=== PATIENT | male | born 1990 | race Caucasian/White ===

== ENCOUNTER 2023-03-20 10:05 | Emergency (ER) | payer OTHER, SELFPAY ==
[2023-03-20 10:14] VITALS: BP 153/86; PULSE 105; RESP 16; TEMP 36.5; O2SAT 99
--- NOTE | 2023-03-20 10:39 | ED.EYEPROB ---
HPI - Eye Problem General Chief complaint: Eye Problems Stated complaint: Left Eye Problem Time Seen by Provider: 03/20/23 10:39 Source: patient, RN notes reviewed and old records reviewed Mode of arrival: ambulatory Limitations: no limitations History of Present Illness HPI Narrative: 32 year old male who presents to express care with complaints of left eye redness with drainage since yesterday afternoon, Patent reports crusting of his left eye noted this morning.Patient reports that he has noticed some blurring of vision with excessive watering burning sensation and drainage noted to be clear yellow and greenish in color. Patient does have mild upper left eyelid swelling. Patient also reports that he has had some sinus congestion and drainage for the past 4-5 days with no known fevers, chills or sweats or any body aches. MD chief complaint: eye redness and other (drainage) Onset (ago): day(s) (day 2 of symptoms) Location: left eye Severity scale (1-10): 4 Treatments Prior to Arrival: other (warm compresses, saline drops) Related Data Allergies Allergy/AdvReac Type Severity Reaction Status Date / Time No Known Allergies Allergy Verified 03/20/23 10:26 Review of Systems Review of Systems: CONSTITUTIONAL: Denies fever, chills, or sweats. EYES: Denies visual changes. Reports redness,, irritation, discharge from left eye since yesterday afternoon, some blurring of vision left eye with excessive watering ENT: Reports rhinorrhea, congestion, no sore throat, or any otalgia. CARDIOVASCULAR: Denies chest pain, palpitations, or edema. RESPIRATORY: Denies cough or dyspnea. SKIN: Denies rash or itching. 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 There is no relevant family history pertinent to the presenting complaint Exam Narrative: GENERAL: Well-appearing, well-nourished, and in no acute distress. HEAD: Normocephalic, atraumatic. EYES: PERRLA and EOMI. Upper eyelid with some swelling and lower eyelids unremarkable. No periorbital cellulitis noted. Sclera and conjunctivae injected, yellowish greenish discharge left eye noted no sharp pain ENT: Nares clear, clear rhinorrhea no epistaxis. Mucous membranes moist. TM's normal throat pink with no swelling noted post nasal discharge NECK: Supple. no lymphadenopathy CHEST: Clear to auscultation. No respiratory distress.SAO2 99% on room air HEART: Regular rate and rhythm. No murmur heard. Normal peripheral pulses. SKIN: Warm, dry, no rash. NEURO: No focal deficits. Alert and oriented x3. Course Course Emergency Course: Patient is aware of diagnosis, understands and agrees to treatment plan. Anticipatory guidance given. Patient agrees to follow-up as directed and is aware of reasons to seek care at the emergency department. Portions of this record may have been created with voice recognition software Level of Care: Express Care Visit Vital Signs Vital signs: Vital Signs Temperature 36.5 C 03/20/23 10:14 Pulse Rate 105 H 03/20/23 10:14 Respiratory Rate 16 03/20/23 10:14 Blood Pressure 153/86 H 03/20/23 10:14 Pulse Oximetry
== END 2023-03-20 10:50 | disposition home or self-care (01) ==
PROVIDERS: Emergency Provider Registered Nurse; PCP Internal Medicine
DX: H10.9 Unspecified conjunctivitis (principal); F17.210 Nicotine dependence, cigarettes, uncomplicated
CPT/HCPCS: 99213; G0463